=== PATIENT | female | born 1995 | race Caucasian/White ===

== ENCOUNTER 2016-07-26 20:47 | Emergency (ER) | payer BC ==
[2016-07-26 21:02] VITALS: RESP 16; TEMP 97.7
[2016-07-26] MEDS ORDERED: ONDANSETRON DISINTEGRATING 4 MG TAB PO ONE (21:15)
--- NOTE | 2016-07-26 22:05 | EDPHY ---
H & P Stated Complaint: N and V, blurred vision, chills, CORRALES Time Seen by Provider: 07/26/16 21:49 HPI/ROS: Chief complaint: Headache, nausea, vomiting, anxiety reaction HPI: Patient presenting after having an episode where she fell very manic and hyperactive this afternoon. This was followed by an episode of feeling anxious , her hands were cramping, she had numbness around her mouth. In her vision was getting faded. She then states she had a swelling developing headache starting about 330 in the afternoon. It is mostly in her forehead and behind her eyes and both sides. Is an 8 on 10. She does have a history of migraine headaches and is not as bad as her migraines. She states that she suffers from bipolar disorder, attention deficit hyperactivity disorder and anxiety. Has been taking her medications. Has had some nausea and vomiting. Patient also states she sometimes waking up early in the morning with discomfort in her stomach. States that her menstrual cycle has been irregular lately. Is taking her oral contraceptives. Does not believe she is . Has not been in the past. ROS: 10 point Review of Systems is negative except as noted in the HPI. Past medical history: Bipolar disorder Anxiety disorder Attention deficit hyperactivity disorder Physical exam: Gen: Awake, Alert, No Distress HEENT: Face: Bilateral sinus tenderness to percussion in the frontal greater than maxillary sinuses Nose: no rhinorrhea Eyes: PERRLA, EOMI Mouth: Moist mucosa Neck: Supple, no JVD Chest: nontender, lungs clear to auscultation Heart: S1, S2 normal, no murmur Abd: Soft, non-tender, no guarding Back: no CVA tenderness, no midline tenderness Ext: no edema, non-tender Skin: no rash Neuro: CN II-XII intact, Sensation grossly intact, Strength 5/5 in bilateral upper and lower extremities - Personal History LMP (Females 10-55): Now Current Tetanus/Diphtheria Vaccine: Yes Current Tetanus Diphtheria and Acellular Pertussis (TDAP): Yes Tetanus Vaccine Date: 2013 - Medical/Surgical History Hx Asthma: Yes Hx Chronic Respiratory Disease: No Hx Diabetes: No Hx Cardiac Disease: No Hx Renal Disease: No Hx Cirrhosis: No Hx Alcoholism: No Hx HIV/AIDS: No Hx Splenectomy or Spleen Trauma: No Other PMH: Herpes, KIDNEY STONES, Severe anxiety, depression, asthma, drug use, compulsive eating disorder, bulemia, anorexia - Social History Smoking Status: Current every day smoker Constitutional: Initial Vital Signs Temperature (C) 36.5 C 07/26/16 20:59 Heart Rate 120 H 07/26/16 20:59 Respiratory Rate 16 07/26/16 20:59 Blood Pressure 110/95 H 07/26/16 20:59 O2 Sat (%) 95 07/26/16 20:59 O2 Delivery Mode Room Air Allergies/Adverse Reactions: amoxicillin Allergy (Verified 04/16/16 12:37) Home Medications: Medication Instructions Recorded lamoTRIgine [LaMICtal] 50 mg PO DAILY 03/30/15 Xanax 12/13/15 Oxcarbazepine 04/16/16 Loestrin Fe 1-20 Tablet 05/28/16 Adderall 10 MG (*) 07/26/16 Cefuroxime 07/26/16 Medical Decision Making ED Course/Re-evaluation: Patient presenting with an episode of likely anxiety is afternoon with hyperventilation. She now has a headache. She has been treated for sinusitis and she has tenderness per sinus percussion. Since headache is likely secondary to her sinus disease. She is currently on antibiotics for this. CBC is normal, chemistries normal, she is not . Will give analgesia, nausea medications and hydration reassess. 2310 patient is feeling much better. She is asking to go home. Workup is unremarkable. Discharge with follow with her primary care physician, return for worsening. - Data Points Laboratory Results: Laboratory Results 07/26/16 21:50 07/26/16 21:50 07/26/16 07/26/16 07/26/16 21:50 21:50 21:50 WBC 6.57 10^3/uL 10^3/uL (3.80-9.50) RBC 4.99 10^6/uL 10^6/uL (4.18-5.33) Hgb 14.3 g/dL g/dL (12.6-16.3) Hct 41.5 % % (38.0-47.0) MCV 83.2 fL fL (81.5-99.8) MCH 28.7 pg pg (27.9-34.1) MCHC 34.5 g/dL g/dL (32.4-36.7) RDW 12.8 % % (11.5-15.2) Plt Count 392 10^3/uL 10^3/uL (150-400) MPV 9.6 fL fL (8.7-11.7) Neut % (Auto) 59.6 % % (39.3-74.2) Lymph % (Auto) 33.0 % % (15.0-45.0) Cobb % (Auto) 5.8 % % (4.5-13.0) Eos % (Auto) 0.5 % L % (0.6-7.6) Baso % (Auto) 0.9 % % (0.3-1.7) Nucleat RBC Rel Count 0.0 % % (0.0-0.2) Absolute Neuts (auto) 3.92 10^3/uL 10^3/uL (1.70-6.50) Absolute Lymphs (auto) 2.17 10^3/uL 10^3/uL (1.00-3.00) Absolute Monos (auto) 0.38 10^3/uL 10^3/uL (0.30-0.80) Absolute Eos (auto) 0.03 10^3/uL 10^3/uL (0.03-0.40) Absolute Basos (auto) 0.06 10^3/uL 10^3/uL (0.02-0.10) Absolute Nucleated RBC 0.00 10^3/uL 10^3/uL (0-0.01) Immature Gran % 0.2 % % (0.0-1.1) Immature Gran # 0.01 10^3/uL 10^3/uL (0.00-0.10) Sodium 142 mEq/L mEq/L (134-144) Potassium 4.4 mEq/L mEq/L (3.5-5.2) Chloride 104 mEq/L mEq/L (97-110) Carbon Dioxide 23 mEq/l mEq/l (22-31) Anion Gap 15 mEq/L mEq/L (8-16) BUN 19 mg/dL mg/dL (7-23) Creatinine 0.8 mg/dL mg/dL (0.6-1.0) Estimated GFR > 60 Glucose 87 mg/dL mg/dL (70-100) Calcium 10.1 mg/dL mg/dL (8.5-10.4) Total Bilirubin 0.8 mg/dL mg/dL (0.1-1.4) Conjugated Bilirubin 0.4 mg/dL mg/dL (0.0-0.5) Unconjugated Bilirubin 0.4 mg/dL mg/dL (0.0-1.1) AST 22 IU/L IU/L (14-46) ALT 24 IU/L IU/L (9-52) Alkaline Phosphatase 71 IU/L IU/L (38-126) Total Protein 8.8 g/dL H g/dL (6.3-8.2) Albumin 4.9 g/dL g/dL (3.5-5.0) Lipase 50.0 IU/L IU/L (23-300) Beta HCG, Qual NEGATIVE Medications Given: Discontinued Medications Sodium Chloride (Ns) 1,000 mls @ 0 mls/hr IV ONCE ONE PRN Reason: Wide Open Stop: 07/26/16 22:07 Last Admin: 07/26/16 22:14 Dose: 1,000 mls Ketorolac Tromethamine (Toradol) 30 mg IVP EDNOW ONE Stop: 07/26/16 22:07 Last Admin: 07/26/16 22:19 Dose: 30 mg Metoclopramide HCl (Reglan Injection) 10 mg IVP EDNOW ONE Stop: 07/26/16 22:07 Last Admin: 07/26/16 22:18 Dose: 10 mg Ondansetron HCl (Zofran Odt) 4 mg PO EDNOW ONE Stop: 07/26/16 21:16 Last Admin: 07/26/16 21:16 Dose: 4 mg Departure - Departure Disposition: Home, Routine, Self-Care Clinical Impression: Sinusitis, Hyperventilation, Nausea, Dehydration Condition: Fair Instructions: Sinusitis (ED), Acute Nausea and Vomiting (ED), Hyperventilation (ED) Additional Instructions: You may alternate ibuprofen and acetaminophen every 4 hours as needed for aches , pains, fevers or chills. Continue taking your full course of antibiotics for sinusitis. Follow up with primary care physician in 3-4 days if symptoms are not improving. Referrals: Abby Ramachandran MD [Primary Care Provider] - As per Instructions
[2016-07-26] MEDS ORDERED: METOCLOPRAMIDE 10 MG/2 ML VIAL IVP ONE (22:06)
[2016-07-26] MEDS ORDERED: NS 1,000 ML IV ONE (22:06)
[2016-07-26] MEDS ORDERED: KETOROLAC 30 MG/1 ML SDV IVP ONE (22:06)
[2016-07-26 22:11] LABS: % IMMATURE GRANULYOCYTES 0.2 % (0.0-1.1); ABSOLUTE IMMATURE GRANULOCYTES 0.01 10^3/uL (0.00-0.10); ADD DIFF? NO; ADD MORPH? NO; ADD SCAN? NO; ATYPICAL LYMPHOCYTE FLAG 30 (0-99); FRAGMENT RBC FLAG 0 (0-99); HEMATOCRIT 41.5 % (38.0-47.0); HEMOGLOBIN 14.3 g/dL (12.6-16.3); LEFT SHIFT FLG 0 (0-99); LIPEMIA HEMOLYSIS FLAG 90 (0-99); MEAN CELL HEMOGLOBIN 28.7 pg (27.9-34.1); MEAN CELL HEMOGLOBIN CONCENTR. 34.5 g/dL (32.4-36.7); MEAN CELL VOLUME 83.2 fL (81.5-99.8); MEAN PLATELET VOLUME 9.6 fL (8.7-11.7); PLATELET CLUMPS FLAG 0 (0-99); PLATELET COUNT 392 10^3/uL (150-400); RED BLOOD CELL COUNT 4.99 10^6/uL (4.18-5.33); RED CELL DISTRIBUTION WIDTH 12.8 % (11.5-15.2)
[2016-07-26 22:36] LABS: ALANINE AMINOTRANSFERASE 24 IU/L (9-52); ALBUMIN 4.9 g/dL (3.5-5.0); ALKALINE PHOSPHATASE 71 IU/L (38-126); ANION GAP 15 mEq/L (8-16); ASPARTATE AMINOTRANSFERASE 22 IU/L (14-46); BILIRUBIN,TOTAL 0.8 mg/dL (0.1-1.4); BILIRUBIN-CONJUGATED 0.4 mg/dL (0.0-0.5); BILIRUBIN-UNCONJUGATED 0.4 mg/dL (0.0-1.1); CALCIUM 10.1 mg/dL (8.5-10.4); CARBON DIOXIDE 23 mEq/l (22-31); CHLORIDE 104 mEq/L (97-110); CREATININE 0.8 mg/dL (0.6-1.0); GLOMERULAR FILTRATION RATE > 60; GLUCOSE 87 mg/dL (70-100); POTASSIUM 4.4 mEq/L (3.5-5.2); SODIUM 142 mEq/L (134-144); TOTAL PROTEIN 8.8 g/dL (6.3-8.2)
[2016-07-26] MEDS ORDERED: ONDANSETRON 4MG PREPACK#2 BTL TAKEHOME ONE ×2 (23:17→23:25)
[2016-07-26 23:26] VITALS: BP 100/54; PULSE 88; O2SAT 95
== END 2016-07-26 23:26 | disposition home or self-care (01) ==
DX: J32.9 Chronic sinusitis, unspecified (principal); R06.4 Hyperventilation; R11.0 Nausea; E86.0 Dehydration; J45.909 Unspecified asthma, uncomplicated; F17.200 Nicotine dependence, unspecified, uncomplicated
CPT/HCPCS: 96374; J1885; J2765

== ENCOUNTER 2016-09-17 23:09 | Emergency (ER) | payer BC ==
[2016-09-17 23:12] VITALS: TEMP 97.7
[2016-09-17] MEDS ORDERED: ONDANSETRON 4 MG/2 ML VIAL ONE (23:21)
[2016-09-17] MEDS ORDERED: ONDANSETRON 4 MG/2 ML VIAL IVP ONE (23:24)
[2016-09-17] MEDS ORDERED: KETOROLAC 30 MG/1 ML SDV IVP ONE (23:31)
--- NOTE | 2016-09-17 23:36 | EDPHY ---
H & P Stated Complaint: B low abd pain, vomiting, hx ovarian cysts Time Seen by Provider: 09/17/16 23:19 HPI/ROS: HPI The patient presents with lower abdominal pain which is dull in nature, began about 1 hour prior to presentation, is severe and constant. The pain radiates to both of her feet it is worse when she moves. She says the pain began at rest , feels like prior ovarian cyst pain. Her menses started today in her somewhat heavy. She had 3 beers tonight and endorses both nausea and vomiting. She is on oral contraceptives and is followed by OBGYN.. REVIEW OF SYSTEMS Constitutional: No fever, no chills. Eyes: No discharge. ENT: No sore throat. Cardiovascular: No chest pain, no palpitations. Respiratory: No cough, no shortness of breath. Gastrointestinal: See HPI Genitourinary: No hematuria. Musculoskeletal: No back pain. Skin: No rashes. Neurological: No headache. PMHx: History of migraine ovarian cysts, frequent ER visits Soc Hx: College student, alcohol use PHYSICAL General Appearance: Alert, anxious, shivering and hyperventilating Eyes: Pupils equal and round no pallor or injection ENT, Mouth: Mucous membranes moist Respiratory: There are no retractions, lungs are clear to auscultation Cardiovascular: Regular rate and rhythm Gastrointestinal: Abdomen is soft with tenderness in both lower quadrants with voluntary guarding, no rebound Neurological: A&O, moves all extremities Skin: Warm and dry, no rashes Musculoskeletal: Neck is supple non tender Extremities: symmetrical, full range of motion Psychiatric: Patient is oriented X 3, there is no agitation Source: Patient - Personal History LMP (Females 10-55): Now Current Tetanus/Diphtheria Vaccine: Yes Current Tetanus Diphtheria and Acellular Pertussis (TDAP): Yes Tetanus Vaccine Date: 2013 - Medical/Surgical History Hx Asthma: Yes Hx Chronic Respiratory Disease: No Hx Diabetes: No Hx Cardiac Disease: No Hx Renal Disease: No Hx Cirrhosis: No Hx Alcoholism: No Hx HIV/AIDS: No Hx Splenectomy or Spleen Trauma: No Other PMH: Herpes, KIDNEY STONES, Severe anxiety, depression, asthma, drug use, compulsive eating disorder, bulemia, anorexia, ovarian cysts - Social History Smoking Status: Current every day smoker Constitutional: Initial Vital Signs Temperature (C) 36.5 C 04/09/17 23:11 Heart Rate 110 H 09/17/16 23:11 Respiratory Rate 20 09/17/16 23:11 Blood Pressure 143/93 H 09/17/16 23:11 O2 Sat (%) 95 09/17/16 23:11 O2 Delivery Mode Room Air Allergies/Adverse Reactions: amoxicillin Allergy (Verified 04/16/16 12:37) NSAIDS (Non-Steroidal Anti-Inflamma Allergy (Verified 09/18/16 03:40) Other-Enter Comments Home Medications: Medication Instructions Recorded lamoTRIgine [LaMICtal] 50 mg PO DAILY 03/30/15 Xanax 12/13/15 Oxcarbazepine 04/16/16 Loestrin Fe 1-20 Tablet 05/28/16 Adderall 10 MG (*) 07/26/16 Cefuroxime 07/26/16 Ondansetron Odt [Zofran Odt 4 mg 4 mg PO Q4 PRN #10 tab 09/18/16 (*)] Medical Decision Making - Diagnostics Imaging: Pelvic ultrasound demonstrates left-sided ovarian cyst measuring 4 x 3 cm with trace pelvic free fluid, discussed with Dr. Al of Radiology. ED Course/Re-evaluation: In the ER, the patient was given IV fluids for her vomiting, Toradol and morphine with some improvement in her symptoms. Labs were checked which did reveal a leukocytosis. Other labs were normal including test. Transabdominal pelvic ultrasound was performed which demonstrated a left-sided ovarian cyst with no evidence of torsion or rupture. The patient was not able to tolerate the Endo cavitary probe. The patient also refused a pelvic exam during her stay. Because of her ongoing pain, she received a dose of morphine and lidocaine with some improvement. The pain then was more localized to the left side. She says it feels identical to her ovarian cyst pain that she has experienced multiple times. We did discuss CT scan, however given the nature of this pain is identical to previous episodes of pain I do not feel that this would be fruitful. During the end of her stay, the patient expressed frustration about her ongoing pain and lack of good treatment options. Anti-inflammatories cause GI upset for her and she was told she could not take Tylenol. I explained that I think Tylenol safe in her condition, however she should discuss this with her OBGYN provider. She has seen a automobile painter in the past, though did not feel it was very helpful. She does continue to take her OCPs as recommended by OBGYN. I have asked her that she follow up with her treating doctors, it seems that she may benefit from a multi motile approach to her pain control, and I wonder if her pain could be related to another etiology beyond ovarian cyst. Differential Diagnosis: This is a 20-year-old female with history of ovarian cysts and lower abdominal pain, she describes about 10 prior painful episodes, though thinks that this is the worst, who presents today with 1 hour of lower abdominal pain associated with nausea and vomiting which occurred at rest. Differential diagnosis includes ruptured ovarian cyst, ovarian torsion, appendicitis. - Data Points Laboratory Results: Laboratory Results 09/17/16 23:10 09/17/16 23:10 09/17/16 09/17/16 09/17/16 23:40 23:10 23:10 WBC RBC Hgb Hct MCV MCH MCHC RDW Plt Count MPV Neut % (Auto) Lymph % (Auto) Spencer % (Auto) Eos % (Auto) Baso % (Auto) Nucleat RBC Rel Count Absolute Neuts (auto) Absolute Lymphs (auto) Absolute Monos (auto) Absolute Eos (auto) Absolute Basos (auto) Absolute Nucleated RBC Immature Gran % Immature Gran # Sodium 145 mEq/L H mEq/L (134-144) Potassium 4.3 mEq/L mEq/L (3.5-5.2) Chloride 106 mEq/L mEq/L (97-110) Carbon Dioxide 24 mEq/l mEq/l (22-31) Anion Gap 15 mEq/L mEq/L (8-16) BUN 11 mg/dL mg/dL (7-23) Creatinine 0.7 mg/dL mg/dL (0.6-1.0) Estimated GFR > 60 Glucose 98 mg/dL mg/dL (70-100) Calcium 9.6 mg/dL mg/dL (8.5-10.4) Total Bilirubin 0.4 mg/dL mg/dL (0.1-1.4) Conjugated Bilirubin 0.4 mg/dL mg/dL (0.0-0.5) Unconjugated Bilirubin 0.0 mg/dL mg/dL (0.0-1.1) AST 24 IU/L IU/L (14-46) ALT 26 IU/L IU/L (9-52) Alkaline Phosphatase 75 IU/L IU/L (38-126) Total Protein 8.9 g/dL H g/dL (6.3-8.2) Albumin 4.9 g/dL g/dL (3.5-5.0) Lipase 90.0 IU/L IU/L (23-300) Beta HCG, Qual NEGATIVE Urine Color COLORLESS Urine Appearance CLEAR Urine pH 6.0 (5.0-7.5) Ur Specific Byron 1.002 (1.002-1.030) Urine Protein NEGATIVE (NEGATIVE) Urine Ketones NEGATIVE (NEGATIVE) Urine Blood NEGATIVE (NEGATIVE) Urine Nitrate NEGATIVE (NEGATIVE) Urine Bilirubin NEGATIVE (NEGATIVE) Urine Urobilinogen NEGATIVE EU EU (0.2-1.0) Ur Leukocyte Esterase NEGATIVE (NEGATIVE) Ur Culture Indicated? NOT INDICATED (NI) Urine Glucose NEGATIVE (NEGATIVE) 09/17/16 23:10 WBC 14.64 10^3/uL H 10^3/uL (3.80-9.50) RBC 4.81 10^6/uL 10^6/uL (4.18-5.33) Hgb 13.7 g/dL g/dL (12.6-16.3) Hct 40.5 % % (38.0-47.0) MCV 84.2 fL fL (81.5-99.8) MCH 28.5 pg pg (27.9-34.1) MCHC 33.8 g/dL g/dL (32.4-36.7) RDW 12.8 % % (11.5-15.2) Plt Count 489 10^3/uL H 10^3/uL (150-400) MPV 9.4 fL fL (8.7-11.7) Neut % (Auto) 64.7 % % (39.3-74.2) Lymph % (Auto) 29.7 % % (15.0-45.0) Spencer % (Auto) 4.3 % L % (4.5-13.0) Eos % (Auto) 0.5 % L % (0.6-7.6) Baso % (Auto) 0.5 % % (0.3-1.7) Nucleat RBC Rel Count 0.0 % % (0.0-0.2) Absolute Neuts (auto) 9.46 10^3/uL H 10^3/uL (1.70-6.50) Absolute Lymphs (auto) 4.35 10^3/uL H 10^3/uL (1.00-3.00) Absolute Monos (auto) 0.63 10^3/uL 10^3/uL (0.30-0.80) Absolute Eos (auto) 0.08 10^3/uL 10^3/uL (0.03-0.40) Absolute Basos (auto) 0.07 10^3/uL 10^3/uL (0.02-0.10) Absolute Nucleated RBC 0.00 10^3/uL 10^3/uL (0-0.01) Immature Gran % 0.3 % % (0.0-1.1) Immature Gran # 0.05 10^3/uL 10^3/uL (0.00-0.10) Sodium Potassium Chloride Carbon Dioxide Anion Gap BUN Creatinine Estimated GFR Glucose Calcium Total Bilirubin Conjugated Bilirubin Unconjugated Bilirubin AST ALT Alkaline Phosphatase Total Protein Albumin Lipase Beta HCG, Qual Urine Color Urine Appearance Urine pH Ur Specific Byron Urine Protein Urine Ketones Urine Blood Urine Nitrate Urine Bilirubin Urine Urobilinogen Ur Leukocyte Esterase Ur Culture Indicated? Urine Glucose Medications Given: Discontinued Medications Acetaminophen (Tylenol) 1,000 mg PO EDNOW ONE Stop: 09/18/16 00:29 Last Admin: 09/18/16 00:43 Dose: 1,000 mg Lidocaine HCl 90 mg/ Sodium (Chloride) 104.5 mls @ 627 mls/hr IV EDNOW ONE Stop: 09/18/16 02:09 Last Admin: 09/18/16 02:29 Dose: 104.5 mls Ketorolac Tromethamine (Toradol) 15 mg IVP EDNOW ONE Stop: 09/17/16 23:32 Last Admin: 09/17/16 23:35 Dose: 15 mg Lidocaine HCl (Lidocaine Hcl 2%) 90 mg IVP ONCE ONE Stop: 09/18/16 01:35 Last Admin: 09/18/16 01:51 Dose: Not Given Morphine Sulfate (Morphine) 4 mg IVP EDNOW ONE Stop: 09/17/16 23:33 Last Admin: 09/17/16 23:40 Dose: 4 mg Morphine Sulfate (Morphine) 4 mg IVP EDNOW ONE Stop: 09/18/16 00:29 Last Admin: 09/18/16 00:43 Dose: 4 mg Ondansetron HCl (Zofran) 4 mg IVP EDNOW ONE Stop: 09/17/16 23:25 Last Admin: 09/17/16 23:25 Dose: 4 mg Ondansetron HCl (Zofran Odt 4 Mg Prepack#2) 1 btl TAKEHOME EDNOW ONE Stop: 09/18/16 03:03 Last Admin: 09/18/16 03:15 Dose: 1 btl Departure - Departure Disposition: Home, Routine, Self-Care Clinical Impression: Ovarian cyst Qualifiers: Laterality: left Qualified Code(s): N83.202 - Unspecified ovarian cyst, left side Condition: Good Instructions: Ondansetron (By mouth), Ovarian Cyst (ED) Referrals: Abby Ramachandran MD [Primary Care Provider] - As per Instructions Stand Alone Forms: Work Excuse Prescriptions: Ondansetron Odt [Zofran Odt 4 mg (*)] 4 mg PO Q4 PRN #10 tab PRN Reason: Nausea/Vomiting, Can'T Take Po
[2016-09-17 23:50] LABS: % IMMATURE GRANULYOCYTES 0.3 % (0.0-1.1); ABSOLUTE IMMATURE GRANULOCYTES 0.05 10^3/uL (0.00-0.10); ADD DIFF? NO; ADD MORPH? NO; ADD SCAN? NO; ATYPICAL LYMPHOCYTE FLAG 10 (0-99); FRAGMENT RBC FLAG 0 (0-99); HEMATOCRIT 40.5 % (38.0-47.0); HEMOGLOBIN 13.7 g/dL (12.6-16.3); LEFT SHIFT FLG 0 (0-99); LIPEMIA HEMOLYSIS FLAG 90 (0-99); MEAN CELL HEMOGLOBIN 28.5 pg (27.9-34.1); MEAN CELL HEMOGLOBIN CONCENTR. 33.8 g/dL (32.4-36.7); MEAN CELL VOLUME 84.2 fL (81.5-99.8); MEAN PLATELET VOLUME 9.4 fL (8.7-11.7); PLATELET CLUMPS FLAG 0 (0-99); PLATELET COUNT 489 10^3/uL (150-400); RED BLOOD CELL COUNT 4.81 10^6/uL (4.18-5.33); RED CELL DISTRIBUTION WIDTH 12.8 % (11.5-15.2)
[2016-09-18 00:02] LABS: COLOR COLORLESS; LEUKOCYTE ESTERASE,URINE NEGATIVE (NEGATIVE); NITRITE,URINE NEGATIVE (NEGATIVE)
[2016-09-18 00:05] LABS: ALANINE AMINOTRANSFERASE 26 IU/L (9-52); ALBUMIN 4.9 g/dL (3.5-5.0); ALKALINE PHOSPHATASE 75 IU/L (38-126); ANION GAP 15 mEq/L (8-16); ASPARTATE AMINOTRANSFERASE 24 IU/L (14-46); BILIRUBIN,TOTAL 0.4 mg/dL (0.1-1.4); BILIRUBIN-CONJUGATED 0.4 mg/dL (0.0-0.5); CALCIUM 9.6 mg/dL (8.5-10.4); CARBON DIOXIDE 24 mEq/l (22-31); CHLORIDE 106 mEq/L (97-110); CREATININE 0.7 mg/dL (0.6-1.0); GLOMERULAR FILTRATION RATE > 60; GLUCOSE 98 mg/dL (70-100); POTASSIUM 4.3 mEq/L (3.5-5.2); SODIUM 145 mEq/L (134-144); TOTAL PROTEIN 8.9 g/dL (6.3-8.2)
[2016-09-18] MEDS ORDERED: ACETAMINOPHEN 500 MG TAB PO ONE (00:28)
[2016-09-18] MEDS ORDERED: LIDOCAINE 2% 100 MG/5 ML SYR IVP ONE (01:34)
[2016-09-18] MEDS ORDERED: LIDOCAINE IV ONE (02:00)
[2016-09-18] MEDS ORDERED: NS IV ONE (02:00)
[2016-09-18] MEDS ORDERED: ONDANSETRON 4MG PREPACK#2 BTL TAKEHOME ONE (03:02)
[2016-09-18 03:38] VITALS: BP 122/82; PULSE 97; RESP 15; O2SAT 96
== END 2016-09-18 03:35 | disposition home or self-care (01) ==
DX: N83.202 Unspecified ovarian cyst, left side (principal); J45.909 Unspecified asthma, uncomplicated; F17.200 Nicotine dependence, unspecified, uncomplicated
CPT/HCPCS: 96374; J1885; J2001; J2405

== ENCOUNTER 2017-03-18 15:22 | Emergency (ER) | payer BC ==
[2017-03-18] MEDS: LET GEL TOPICAL 1 EA SYR TP ONE (16:13)
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
[2017-03-18] MEDS: CYCLOBENZAPRINE 10MG PREPACK#3 BTL TAKEHOME ONE (17:31)
[2017-03-18 17:37] VITALS: BP 130/72; PULSE 88; RESP 16; TEMP 97.7; O2SAT 98
== END 2017-03-18 17:37 | disposition home or self-care (01) ==
DX: S00.81XA Abrasion of other part of head, initial encounter (principal); S59.902A Unspecified injury of left elbow, initial encounter; J45.909 Unspecified asthma, uncomplicated; F17.200 Nicotine dependence, unspecified, uncomplicated; W10.9XXA Fall (on) (from) unspecified stairs and steps, initial encounter; Y99.8 Other external cause status; Y93.01 Activity, walking, marching and hiking

== ENCOUNTER 2017-03-19 15:13 | Emergency (ER) | payer BC ==
[2017-03-19 15:16] VITALS: BP 121/85; PULSE 69; RESP 18; TEMP 97.9; O2SAT 100
--- NOTE | 2017-03-19 15:45 | EDPHY ---
H & P Time Seen by Provider: 03/19/17 15:19 HPI/ROS: CHIEF COMPLAINT: Wound recheck HISTORY OF PRESENT ILLNESS: 21-year-old female seen emergency department yesterday after she sustained a fall down bleachers 2 days ago sustaining abrasion to her right frontal region. Seen in the ER yesterday, in the ER today for wound recheck. I she awoke with swelling and infraorbital ecchymosis. She is complaining of a nonprogressive, non thunderclap, headache, anxiety. She is concerned that she will develop significant scarring to this area, concerned that she may have fractured her nose. No epistaxis. No rhinorrhea. No diplopia. No visual acuity changes or visual disturbance. PHYSICAL EXAM: 1) GENERAL: Well-developed, well-nourished, alert and oriented. She is tearful 2) HEAD: Normocephalic, right frontal abrasions are granulating appropriately with no signs of infection. Soft tissue swelling and tenderness to the glabella is present. Soft tissue swelling and tenderness to the bridge of nose is present. 3) HEENT: Pupils equal, round, reactive to light bilaterally. No abnormal gaze with extraocular movements. No diplopia with extraocular movements. No facial crepitus. Negative Horners. Nasopharynx, oropharynx, clear. No deformity or angulation of nose. No septal hematoma. No rhinorrhea. No oral trauma. Ears bilaterally with normal tympanic membranes. No hemotympanum. No fluid or blood in the external auditory canal. No raccoon eyes. No Coulter sign. Teeth are normally aligned with no gross malocclusion, TMJ bilaterally nontender, facial bones nontender including the zygomatic arch, maxilla mandible. 4) NECK: No cervical collar is on. Posterior cervical spine is nontender, no stepoff, no effusion. Full range of motion which does not elicit any midline cervical spine pain, no posterior midline tenderness, no step-off. Smoking Status: Current every day smoker Constitutional: Initial Vital Signs Temperature (C) 36.6 C 03/19/17 15:14 Heart Rate 69 03/19/17 15:14 Respiratory Rate 18 03/19/17 15:14 Blood Pressure 121/85 H 03/19/17 15:14 O2 Sat (%) 100 03/19/17 15:14 O2 Delivery Mode Room Air Allergies/Adverse Reactions: amoxicillin Allergy (Verified 03/18/17 15:33) Home Medications: Medication Instructions Recorded lamoTRIgine [LaMICtal] 50 mg PO DAILY 03/30/15 Xanax 12/13/15 Oxcarbazepine 04/16/16 Adderall 10 MG (*) 07/26/16 Bcp 03/18/17 oxyCODONE/APAP 5/325 [Percocet 1 tab PO Q6 #10 tab 03/19/17 5/325] MDM/Departure - [facility] ED Course/Re-evaluation: This patient's facial wounds are granulating appropriately with no signs of infection. She has been informed that due to her mechanism and disruption of the integrity of the skin that scarring will occur. 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 I have recommended follow-up with Plastic surgery and have given her name of on-call plastic surgeon Dr. David Caputo for follow-up regarding scarring and similar. Regarding her blunt nasal glabellar injury, doubt intracranial hemorrhage and/ or skull fracture. Nasal fracture not ruled out. She already has in existing professional relationship with Dr. Anil Pulido. I recommend she follow up with him regarding whether she may have a fractured nasal bone. Doubt entrapped orbital fracture as she has no abnormal gaze, no diplopia with extraocular movements. We had an extensive discussion regarding indications for imaging. Her injury occurred 2 days ago and she is complaining of nonprogressive headache. I do not think that emergent imaging of brain definitively indicated although this has been offered to her and she declines due to concerns over radiation noting that she has had multiple CTs of her head in the past secondary to injuries.Care of patient under supervision of secondary supervising physician Dr Perales . - Depart Disposition: Home, Routine, Self-Care Clinical Impression: Facial abrasion Qualifiers: Encounter type: subsequent encounter Qualified Code(s): S00.81XD - Abrasion of other part of head, subsequent encounter Condition: Good Instructions: Abrasion (ED) Additional Instructions: PLEASE RETURN TO THE EMERGENCY DEPARTMENT (ED) IMMEDIATELY IF YOU HAVE INCREASED HEADACHE, PERSISTENT HEADACHE, VOMITING, WEAKNESS, CONFUSION OR VISUAL PROBLEMS. WE RECOMMEND THAT YOU DO NOT RESUME CONTACT SPORTS OR ACTIVITIES THAT TAKE COORDINATION OR BALANCE SUCH SKIING OR RIDING A BICYCLE UNTIL CLEARED TO DO SO BY YOUR DOCTOR OR BY A NEUROLOGIST. Prescriptions: oxyCODONE/APAP [Percocet ] 1 tab PO Q6 #10 tab Referrals: Anil Pulido MD [Medical Doctor] - 1-2 days without fail David Caputo MD [Medical Doctor] - 1-2 days without fail (Dr. Caputo is a plastic surgeon)
== END 2017-03-19 16:02 | disposition home or self-care (01) ==
DX: S00.81XD Abrasion of other part of head, subsequent encounter (principal); F17.200 Nicotine dependence, unspecified, uncomplicated; W18.39XD Other fall on same level, subsequent encounter

== ENCOUNTER 2017-11-22 01:38 | Emergency (ER) | payer BC ==
[2017-11-22] MEDS ORDERED: HYDROCODONE/APAP 5/325 TAB PO ONE (01:59)
--- NOTE | 2017-11-22 02:02 | EDPHY ---
H & P Stated Complaint: trip/fall onto L elbow while opening a door Time Seen by Provider: 11/22/17 02:00 HPI/ROS: HPI CHIEF COMPLAINT: Left elbow pain. Fall, trauma. HISTORY OF PRESENT ILLNESS: Patient is a 22-year-old female, she presents emergency room after she fell backwards onto her elbow. Patient states that she was leading up against a loose door or and the door moved she lost her balance fell backwards with hitting her elbow on the ground. She immediately had pain. She denies head strike or neck pain. Denies chest pain or shortness of breath. She does state that she had 3 alcoholic beverages tonight. Main complaint left elbow pain. Limited range of motion due to pain. Past Medical History: Depression, anxiety Past Surgical History: No recent surgery Social History: Lives locally, alcohol this evening, denies illicit drugs. Family History: Noncontributory ROS REVIEW OF SYSTEMS: A comprehensive 10 point review of systems is otherwise negative aside from elements mentioned in the history of present illness. Exam Constitutional nontoxic. triage nursing summary reviewed, vital signs reviewed , awake/alert. Eyes normal conjunctivae and sclera, EOMI, PERRLA. HENT normal inspection, atraumatic, moist mucus membranes, no epistaxis, neck supple/ no meningismus, no raccoon eyes. Respiratory clear to auscultation bilaterally, normal breath sounds, no respiratory distress, no wheezing. Cardiovascular rate normal, regular rhythm, no murmur, no edema, distal pulses normal. Gastrointestinal soft, non-tender, no rebound, no guarding, normal bowel sounds, no distension, no pulsatile mass. Genitourinary no CVA tenderness. 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 Tender palpation of the left posterior elbow. Also has pain left distal humerus and proximal left forearm, no signs of compartment syndrome go No significant swelling. no midline vertebral tenderness, full range of motion, no calf swelling, no tenderness of extremities, no meningismus, good pulses, neurovascularly intact. Skin pink, warm, & dry, no rash, skin atraumatic. Neurologic awake, alert and oriented x 3, AAOx3, moves all 4 extremities equally, motor intact, sensory intact, CN II-XII intact, normal cerebellar, normal vision, normal speech. Psychiatric normal mood/affect. Heme/Lymph/Immune no lymphadenopathy. Differential Diagnosis: Includes but is not limited to in a particular order elbow contusion, elbow fracture, elbow contusion, soft tissue injury Medical Decision Making: Plan for this patient x-ray of the left elbow, x-ray left humerus and forearm as she has pain throughout. Re-evaluation: X-ray series of the left elbow. Reviewed by me. Fat pad sign present. However I do not appreciate a significant fracture. Possible call fracture. Patient will be splinted in a posterior long-arm splint. This will be for stabilization protection in case she has an occult left elbow fracture. Additionally will have her follow up with Orthopedics. Return precautions discussed with her. She is neurovascular intact at this time. Good distal pulse, no compartment syndrome. Source: Patient - Personal History LMP (Females 10-55): 8-14 Days Ago Tetanus Vaccine Date: 2013 - Medical/Surgical History Hx Asthma: Yes Hx Chronic Respiratory Disease: No Hx Diabetes: No Hx Cardiac Disease: No Hx Renal Disease: No Hx Cirrhosis: No Hx Alcoholism: No Hx HIV/AIDS: No Hx Splenectomy or Spleen Trauma: No Other PMH: Herpes, KIDNEY STONES, Severe anxiety, depression, asthma, drug use, compulsive eating disorder, bulemia, anorexia, ovarian cysts - Social History Smoking Status: Former smoker Constitutional: Initial Vital Signs Temperature (C) 36.6 C 11/22/17 01:48 Heart Rate 101 H 11/22/17 01:48 Respiratory Rate 16 11/22/17 01:48 Blood Pressure 123/76 H 11/22/17 01:48 O2 Sat (%) 95 11/22/17 01:48 O2 Delivery Mode Room Air Allergies/Adverse Reactions: amoxicillin Allergy (Verified 11/22/17 01:46) Home Medications: Medication Instructions Recorded lamoTRIgine [LaMICtal] 50 mg PO DAILY 03/30/15 Xanax 12/13/15 Oxcarbazepine 04/16/16 Adderall 10 MG (*) 07/26/16 Medical Decision Making - Data Points Medications Given: Discontinued Medications Hydrocodone Bitart/Acetaminophen ([place] 5/325) 1 tab PO EDNOW ONE Stop: 11/22/17 02:00 Last Admin: 11/22/17 02:07 Dose: 1 tab Departure - Departure Disposition: Home, Routine, Self-Care Clinical Impression: Elbow contusion Condition: Good Instructions: Arthralgia (ED), Elbow Sprain (ED) Additional Instructions: 1. Return emergency room if you have worsening pain questions or concerns. 2. Follow up with Orthopedics. Referrals: NONE *PRIMARY CARE P,. [Primary Care Provider] - As per Instructions Juan Montejo MD [Medical Doctor] - As per Instructions
[2017-11-22] MEDS ORDERED: HYDROCOD/APAP 5/325 PREPACK#6 BTL TAKEHOME ONE (03:35)
[2017-11-22 03:45] VITALS: BP 103/55
== END 2017-11-22 03:45 | disposition home or self-care (01) ==
DX: S50.02XA Contusion of left elbow, initial encounter (principal); J45.909 Unspecified asthma, uncomplicated; Z87.891 Personal history of nicotine dependence; W01.198A Fall on same level from slipping, tripping and stumbling with subsequent striking against other object, initial encounter